=== PATIENT | female | born 1980 | race Caucasian/White ===

== ENCOUNTER → 2019-06-15 | Outpatient (CLI) | payer BC ==
--- NOTE | 2019-06-16 16:01 | XR ---
EXAMINATION TYPE: XR cervical spine comp DATE OF EXAM: 06/15/2019 COMPARISON: None HISTORY: Cervicalgia TECHNIQUE: Five-view cervical spine FINDINGS: No acute fractures are evident. Vertebral body heights are preserved. Disc heights are pres erved. Prevertebral space is normal. Posterior spinal lamellar line is intact IMPRESSION: 1. Normal cervical spine
== END | disposition home or self-care (01) ==
LOC: RADXRYALE 16:48
PROVIDERS: ATTEND Physician Assistant Medical
DX: M54.2 Cervicalgia (principal)
CPT/HCPCS: 72050

== ENCOUNTER → 2021-03-27 | Outpatient (CLI) | payer BC, OTHER ==
--- NOTE | 2021-03-27 16:05 | XR ---
EXAMINATION TYPE: XR Hip Complete LT DATE OF EXAM: 03/27/2021 COMPARISON: NONE HISTORY: 41-year-old female [id number], left hip pain TECHNIQUE: 2 views FINDINGS: SI joints appear symmetric and intact as does the pubic symphysis. Tiny 3 mm focus of degen erative labral ossification on the left. No acute fracture, subluxation, or dislocation. Tiny pelvic phlebolith. IMPRESSION: No acute osseous abnormality seen.
== END | disposition home or self-care (01) ==
LOC: RADXRYALE 14:07
PROVIDERS: ATTEND Physician Assistant Medical
DX: M25.552 Pain in left hip (principal)
CPT/HCPCS: 73502